=== PATIENT | female | born 1945 | race Caucasian/White ===

== ENCOUNTER → 2020-02-14 | Outpatient (CLI) | payer OTHER ==
[~2020-02-14] MED LIST: Aspir 8181 MG PO; LEVSOD100 PO; PRAV20 PO; TRIHYD253A PO
== END | disposition home or self-care (01) ==
LOC: LAB SHORT 11:39 → LAB EV 11:39
DX: N39.0 Urinary tract infection, site not specified (principal)
CPT/HCPCS: 87077; 87086; 87186

== ENCOUNTER 2023-04-26 09:20 | Inpatient (IN) | payer OTHER ==
[2023-04-26] VITALS (9 sets, daily range): BP systolic 82–110; BP diastolic 54–61
[~2023-04-26] VITALS: Ht 157.5 cm; Wt 54.9 kg
[~2023-04-26 09:20] MED LIST changes: +EUTHYROX50 MCG PO; -LEVSOD100 PO
[2023-04-26 10:43] LABS: International Normalized Ratio 1.16; Prothrombin Time Results 12.1 Sec (9.7-11.5)
[2023-04-26 11:15] LABS: Adenovirus Not Detected (NOT DETECT); Bordetella pertussis Not Detected (NOT DETECT); Chlamydophila pneumoniae Not Detected (NOT DETECT); Coronavirus 229E Not Detected (NOT DETECT); Coronavirus HKU1 Not Detected (NOT DETECT); Coronavirus NL63 Not Detected (NOT DETECT); Coronavirus OC43 Not Detected (NOT DETECT); Human Metapneumovirus Not Detected (NOT DETECT); Human Rhinovirus/Enterovirus Not Detected (NOT DETECT); Influenza A/2009-H1 Not Detected (NOT DETECT); Influenza A/H1 Not Detected (NOT DETECT); Influenza A/H3 Not Detected (NOT DETECT); Influenza B Not Detected (NOT DETECT); Mycoplasma pneumoniae Not Detected (NOT DETECT); Parainfluenza Virus 1 Not Detected (NOT DETECT); Parainfluenza Virus 2 Not Detected (NOT DETECT); Parainfluenza Virus 3 Not Detected (NOT DETECT); Parainfluenza Virus 4 Not Detected (NOT DETECT); Respiratory Syncytial Virus Not Detected (NOT DETECT); SARS-Cov-2 (COVID-19), BioFire Not Detected (NOT DETECT)
[2023-04-26 12:14] LABS: Albumin, Blood 2.2 g/dL (3.4-5.0); Albumin/Globulin Ratio 0.6 (0.8-1.8); Bilirubin, Total 0.7 mg/dL (0.1-1.0); Bun/Creatinine Ratio 16.4 (12.0-20.0); Calcium, Blood 8.5 mg/dL (8.5-10.1); Creatinine, Blood 1.1 mg/dL (0.40-1.00); Globulin, Blood 3.5 g/dL (2.2-4.0); Magnesium, Blood 2.2 mg/dL (1.6-2.4); Potassium, Blood 4.3 mmol/L (3.5-5.5); Total Protein, Blood 5.7 g/dL (6.4-8.2)
[2023-04-26 12:28] LABS: Hematocrit 25.1 % (33.0-51.0); Hemoglobin 8.5 g/dL (11.5-16.0); Mean Corpuscular HGB 29.9 pg (26.0-34.0); Mean Corpuscular HGB Conc 33.9 g/dL (31.5-36.5); Mean Corpuscular Volume 88 fL (80-100); RDW Coefficient Variation 15.2 % (11.7-14.2); RDW Standard Deviation 49.1 fL (35.1-46.3); Red Blood Cell Count 2.84 M/mm3 (3.80-5.20); White Blood Cell Count 5.32 K/mm3 (4.00-11.30)
[2023-04-26 12:30] LABS: Mean Platelet Volume 11.7 fL (9.1-12.4); Platelet Count 170 K/mm3 (150-400)
[2023-04-26 12:49] LABS: BAND PERCENT MAN 7 % (0-8); BASOPHILS PERCENT MAN 0 % (0-2); EOSINOPHILS ABSOLUTE MAN 0.05 K/mm3 (0.00-0.68); EOSINOPHILS PERCENT MAN 1 % (0-6); LYMPHOCYTES % ATYPICAL MANUAL 3 % (0-0); LYMPHOCYTES ABSOLUTE MAN 0.58 K/mm3 (0.84-5.20); LYMPHOCYTES PERCENT MAN 8 % (21-46); MONOCYTES PERCENT MAN 2 % (4-13); NEUTROPHILS ABSOLUTE MAN 4.57 K/mm3 (1.96-9.15); SEG NEUTROPHILS PERCENT MAN 79 % (41-73); TOTAL CELLS COUNTED 100
[2023-04-26 13:04] LABS: Source, Urine Clean Catch
[2023-04-26 13:17] LABS: Appearance, Urine Clear (Clear); Bilirubin, Urine Neg (Neg); Blood, Urine Neg (Neg); Color, Urine Yellow (P-Yellow); Glucose Qualitative, Urine Neg (Neg); Ketones, Urine Neg (Neg); Leukocyte Esterase, Urine Neg (Neg); Nitrite, Urine Neg (Neg); Protein, Urine Neg (Neg); Urobilinogen, Urine NORM (Normal)
[2023-04-26] MEDS ORDERED: OMEP20ER PO (15:18)
--- NOTE | 2023-04-26 15:51 | NUR ---
ADMIT: PATIENT ADMIT TO PCU 08. EDUCATED/ORIENTED TO UNIT AND UNIT PROTOCOLS INCLUDING FIRE SAFETY AND IGNITION RISK. PATIENT ABLE TO VERBALIZE AND TEACH BACK EDUCATION. ALERT AND ORIENTED X4. SOFT SPOKEN. OVERALL WEAK. 1 PERSON ASSIST. DENIES NUMBNESS/TINGLING. PERRLA, WEARING GLASSES. TELE SHOWING SR WITH HR 80-90'S. BP SOFT WITH NS INFUSING PER EMAR. DENIES CHEST PAIN/PRESSURE/PALPITATIONS. PPP. NO SIGNS OF BLEEDING. PATIENT STATES SHE RECENTLY WENT TO [place] FROM [facility] FOR GI BLEED AND STATES "THEY STOPPED BLEED BY DOING ANGIO". RIGHT GROIN RESIDUAL BRUISING FROM ANGIO. PATIENT DENIES ANY DARK BLACK OR BRIGHT RED STOOLS. STATES SHE HAS VERY SMALL BOWEL MOVEMENTS. CLEAR LIQUID DIET. DRINKING CHICKEN BROTH AT THIS TIME. BOWEL TONES PRESENT. DENIES ABDOMINAL PAIN/NAUSEA. ON ROOM AIR SATING ABOVE 95%. LUNGS SOUNDING CLEAR AND DIM IN BASES. EVEN AND UNLABORDED BREATHING. PATIENT STATES SHE OCCASIONALLY FEELS SOB. CONTINUOUS PULSE OX IN PLACE. TEJAS AT BEDSIDE AND UPDATED BY THIS RN. TO CALL THIS RN WHEN HOME AND VERIFY HOME MEDICATION DOSAGES. CALL LIGHT IN REACH. PATIENT EDUCATED ON FALL RISK AND VERBALIZES SHE WILL CALL FOR ASSISTANCE WHEN NEEDING TO GET UP TO BATHROOM.
--- NOTE | 2023-04-26 17:42 | NUR ---
SHIFT SUMMARY: NO ACUTE CHANGES. BP SLIGHTLY IMPROVED. PATIENT CONTINUES TO DENY PAIN. REMAINS ON ROOM AIR. TELE SR WITH HR 70-80'S. UP TO BSC WITH ONE PERSON ASSIST. NS INFUSING PER EMAR. EATING CLEAR LIQUID DINNER AT THIS TIME. NO SIGNS OF GI BLEED. SCD'S IN PLACE. ABLE TO VERIFY MEDS AND COMPLETE MED REC WITH . CALL LIGHT IN REACH.
--- NOTE | 2023-04-26 20:57 | NUR ---
ASSUMED PT CARE FROM RICHARD PADILLA ON . PT IS A&OX4. ABLE TO FOLLOW DIRECTIONS AND MAKE NEEDS KNOWN. DENIES ANY SOB OR CHEST PAIN THIS EVENING. O2 SATS > 92% ON RA. HR IS SR IN THE 80'S. BP IS SOFT, SEE RECORDED BP, MAP > 65. ASYMPTOMATIC. WILL MONITOR. DENIES NEEDS AT THIS TIME. CALL LIGHT IN REACH.
[2023-04-27] VITALS (15 sets, daily range): BP systolic 87–104; BP diastolic 53–74
[2023-04-27 05:49] LABS: BASOPHILS ABSOLUTE AUTO 0.06 K/mm3 (0.00-0.23); BASOPHILS PERCENT AUTO 1 % (0-2); EOSINOPHILS ABSOLUTE AUTO 0.03 K/mm3 (0.00-0.68); EOSINOPHILS PERCENT AUTO 1 % (0-6); Hematocrit 25.5 % (33.0-51.0); Hemoglobin 8.6 g/dL (11.5-16.0); IMMATURE GRAN ABSOLUTE AUTO 0.02 K/mm3 (0.00-0.10); IMMATURE GRAN PERCENT AUTO 0 % (0-1); LYMPHOCYTES ABSOLUTE AUTO 0.13 K/mm3 (0.84-5.20); LYMPHOCYTES PERCENT AUTO 3 % (21-46); MONOCYTES ABSOLUTE AUTO 0.73 K/mm3 (0.16-1.47); MONOCYTES PERCENT AUTO 16 % (4-13); Mean Corpuscular HGB 30.2 pg (26.0-34.0); Mean Corpuscular HGB Conc 33.7 g/dL (31.5-36.5); Mean Corpuscular Volume 90 fL (80-100); Mean Platelet Volume 11.6 fL (9.1-12.4); NEUTROPHILS ABSOLUTE AUTO 3.71 K/mm3 (1.96-9.15); NEUTROPHILS PERCENT AUTO 79 % (41-73); Platelet Count 184 K/mm3 (150-400); RDW Coefficient Variation 15.7 % (11.7-14.2); RDW Standard Deviation 50.6 fL (35.1-46.3); Red Blood Cell Count 2.85 M/mm3 (3.80-5.20); White Blood Cell Count 4.68 K/mm3 (4.00-11.30)
[2023-04-27 06:07] LABS: Albumin, Blood 1.7 g/dL (3.4-5.0); Albumin/Globulin Ratio 0.7 (0.8-1.8); Bilirubin, Total 0.5 mg/dL (0.1-1.0); Bun/Creatinine Ratio 13.8 (12.0-20.0); Calcium, Blood 7.2 mg/dL (8.5-10.1); Creatinine, Blood 1.09 mg/dL (0.40-1.00); Globulin, Blood 2.5 g/dL (2.2-4.0); Potassium, Blood 4.8 mmol/L (3.5-5.5); Total Protein, Blood 4.2 g/dL (6.4-8.2)
--- NOTE | 2023-04-27 07:08 | NUR ---
SHIFT SUMMARY: PT SLEEPING INTERMITTENTLY THROUGHOUT NIGHT. BPS REMAIN SOFT WITH MAP > 65. NO ACUTE CHANGES NOTE IN PT CONDITION DURING THIS SHIFT. CALL LIGHT IN REACH. BED IN LOW POSITION.
--- NOTE | 2023-04-27 08:53 | NUR ---
AM NOTE: PATIENT ALERT AND ORIENTED X4. OVERALL WEAK. PERRLA, WEARING GLASSES. DENIES NUMBNESS/TINGLING. UP WITH SBA. ON ROOM AIR SATING ABOVE 95%. AT TIMES FEELING SOB. OCCASIONAL NON PRODUCTIVE COUGH. EVEN AND UNLABORED BREATHING. EDUCATED ON FIRE RISK SAFETY AND IGNITION SOURCES. PATIENT DENIES HAVING ANY IGNITION SOURCES. TELE SHOWING SR WITH HR 80-90'S. DENIES CHEST PAIN/PRESSURE/PALPITATIONS. BP ON SOFTER SIDE. PO MIDODRINE GIVEN THIS AM. DR. WATKINS BY THIS AM. THIS RN WILL CONTINUE TO UPDATE DR. WATKINS ON BP LATER THIS AFTERNOON. PPP. MINIMAL EDEMA IN BLE. SCD'S IN PLACE. DENIES ABDOMINAL PAIN/NAUSEA. CLEAR LIQUID DIET AT THIS TIME. EATING AND VOIDING WNL. BOWEL TONES PRESENT. CALL LIGHT IN REACH. GRANDSON AT BEDSIDE.
--- NOTE | 2023-04-27 17:53 | NUR ---
SHIFT SUMMARY: NO ACUTE CHANGES, SEE PREVIOUS NOTES. PATIENT UP TO CHAIR FOR MEALS AND WALKING AROUND ROOM WITH THIS RN. REMAINS WEAK. DRY COUGH WHEN UP EXERCISING. ON ROOM AIR. SR/ST WITH HR 80-110'S. BP REMAINS SOFT, PO MIDODRINE ADMINISTERED PER EMAR. EATING AND VOIDING WELL. PHYSICAL THERAPY WORKING WITH PATIENT. UPDATED BY THIS RN AND DR. WATKINS. CALL LIGHT IN REACH.
--- NOTE | 2023-04-27 21:08 | NUR ---
ASSUMED PT CARE FROM RICHARD PADILLA ON . A&OX4. ABLE TO FOLLOW DIRECTIONS AND MAKE NEEDS KNOWN. PT DENIES ANY SOB OR CHEST PAIN/PRESSURES THIS EVENING. HR IS SR IN THE 80'S. O2 > 92% ON RA. DENIES ANY NAUSEA. WARM BLANKET PROVIDED FOR COMFORT. DENIES FURTHER NEEDS AT THIS TIME. CALL LIGHT IN REACH.
[2023-04-28 01:27] VITALS: BP 84/48
--- NOTE | 2023-04-28 02:14 | NUR ---
DR. DOMÍNGUEZ NOTIFIED PT BP LOW WITH MAP OF 60 THIS A.M. ADDITIONAL DOSE OF MIDODRINE GIVEN PER ORDERS.
[2023-04-28 03:37] VITALS: BP 91/52
[2023-04-28 04:44] LABS: Hemoglobin 8.5 g/dL (11.5-16.0); Mean Corpuscular HGB 30.2 pg (26.0-34.0); Mean Corpuscular Volume 89 fL (80-100); Mean Platelet Volume 11.4 fL (9.1-12.4); Platelet Count 181 K/mm3 (150-400); RDW Coefficient Variation 15.8 % (11.7-14.2); RDW Standard Deviation 51.4 fL (35.1-46.3); Red Blood Cell Count 2.81 M/mm3 (3.80-5.20); White Blood Cell Count 4.72 K/mm3 (4.00-11.30)
[2023-04-28 05:03] LABS: Bun/Creatinine Ratio 15.4 (12.0-20.0); Calcium, Blood 7.8 mg/dL (8.5-10.1); Creatinine, Blood 1.23 mg/dL (0.40-1.00); Potassium, Blood 4.5 mmol/L (3.5-5.5)
[2023-04-28 05:21] LABS: BAND PERCENT MAN 11 % (0-8); BASOPHILS ABSOLUTE MAN 0.09 K/mm3 (0.00-0.23); BASOPHILS PERCENT MAN 2 % (0-2); EOSINOPHILS ABSOLUTE MAN 0.04 K/mm3 (0.00-0.68); EOSINOPHILS PERCENT MAN 1 % (0-6); LYMPHOCYTES ABSOLUTE MAN 0.04 K/mm3 (0.84-5.20); LYMPHOCYTES PERCENT MAN 1 % (21-46); MONOCYTES ABSOLUTE MAN 0.51 K/mm3 (0.16-1.47); MONOCYTES PERCENT MAN 11 % (4-13); NEUTROPHILS ABSOLUTE MAN 4.01 K/mm3 (1.96-9.15); SEG NEUTROPHILS PERCENT MAN 74 % (41-73); TOTAL CELLS COUNTED 100
--- NOTE | 2023-04-28 07:32 | NUR ---
SHIFT SUMMARY: PT SLEEPING INTERMITTENTLY THROUGHOUT SHIFT. DENIES ANY COMPLAINTS OF CHEST PAIN/PRESSURE. VITAL SIGNS STABLE. CALL LIGHT IN REACH. RESTING IN BED WATCHING TV.
[2023-04-28 07:43] VITALS: BP 95/59
[2023-04-28 11:47] VITALS: BP 94/59
[2023-04-28 15:47] VITALS: BP 104/61
--- NOTE | 2023-04-28 17:10 | NUR ---
SHIFT SUMMARY: PT ALERT AND ORIENTED X4, ABLE TO FOLLOW COMMANDS AND MAKE NEEDS KNOWN. BP SOFT MAP >60, HR SR 90'S, AFEBRILE, SATS >98% ON ROOM AIR. MIDODRINE INCREASED THIS SHIFT, RESPONDING WELL. PT ONE PERSON ASSIST TO AND FROM BATHROOM. APPROX 800 ML OF URINARY OUT, NO BM. PT AMBULATED WITH THIS SHIFT AROUND UNIT. PATIENT EDUCATED ON RISK REGARDING IGNITION SOURCES AND RISK OF INJURY WHILE OXYGEN IS IN USE. PT DENIES SMOKING AND VERBALIZES UNDERSTANDING. BED IN LOW, CALL LIGHT IN REACH, WILL REPORT TO ONCOMING RN.
[2023-04-28 21:21] VITALS: BP 90/58
--- NOTE | 2023-04-28 21:26 | NUR ---
ASSUMED PT CARE FROM BENI PADILLA ON . A&OX4. DENIES ANY NAUSEA OR CHEST PAIN. HR SR IN THE 80'S. UP TO THE 110'S WHEN AMBUALTING. O2 > 92% ON RA. STATES SOB AT BASELINE BUT AT THIS TIME NOT INCREASED MORE THEN NORMAL. BP SOFT WITH MAP > 65 AT THIS TIME. DENIES LIGHTHEADEDNESS/DIZZIENESS. VOIDING CLEAR, YELLOW URINE WITHOUT DIFFICULTY. DENIES FURTHER NEEDS. CALL LIGHT IN REACH.
[2023-04-29 00:17] VITALS: BP 92/59
[2023-04-29 04:37] VITALS: BP 92/57
[2023-04-29 04:39] LABS: Hematocrit 23.6 % (33.0-51.0); Mean Corpuscular HGB 29.9 pg (26.0-34.0); Mean Corpuscular HGB Conc 33.9 g/dL (31.5-36.5); Mean Corpuscular Volume 88 fL (80-100); Mean Platelet Volume 11.6 fL (9.1-12.4); Platelet Count 170 K/mm3 (150-400); RDW Coefficient Variation 15.8 % (11.7-14.2); RDW Standard Deviation 50.8 fL (35.1-46.3); Red Blood Cell Count 2.68 M/mm3 (3.80-5.20)
[2023-04-29 04:58] LABS: Calcium, Blood 7.4 mg/dL (8.5-10.1); Creatinine, Blood 1.13 mg/dL (0.40-1.00); Potassium, Blood 4.3 mmol/L (3.5-5.5)
--- NOTE | 2023-04-29 05:26 | NUR ---
SHIFT SUMMARY: BP CONTINUES TO BE SOFT WITH MAP > 65. NO ACUTE CHANGES NOTED DURING THIS SHIFT. OTHER VITAL SIGNS STABLE. SLEPT MAJORITY OF SHIFT. CALL LIGHT IN REACH. BED IN LOW POSITION.
[2023-04-29 05:43] LABS: BASOPHILS ABSOLUTE MAN 0.12 K/mm3 (0.00-0.23); BASOPHILS PERCENT MAN 3 % (0-2); EOSINOPHILS ABSOLUTE MAN 0.08 K/mm3 (0.00-0.68); EOSINOPHILS PERCENT MAN 2 % (0-6); LYMPHOCYTES PERCENT MAN 5 % (21-46); MONOCYTES PERCENT MAN 5 % (4-13); SEG NEUTROPHILS PERCENT MAN 85 % (41-73); TOTAL CELLS COUNTED 100
[2023-04-29 07:37] VITALS: BP 96/56
[2023-04-29] MEDS ORDERED: PANT40 PO (11:11)
[2023-04-29] MEDS ORDERED: ACET325 PO (11:12)
[2023-04-29] MEDS ORDERED: BENZ100A PO (11:13)
[2023-04-29] MEDS ORDERED: VISBIOME 112.51 EACH PO (11:14)
[2023-04-29] MEDS ORDERED: MIDO5 PO (11:14)
[2023-04-29] MEDS ORDERED: AMOX CLAV PO (11:15)
--- NOTE | 2023-04-29 12:43 | NUR ---
DISCHARGE: PT HAS BEEN CLEARED FOR DISCHARGE. ALL IV ACCESS DC'd WNL. PT DRESSES SELF. PT PROVIDED W/DC INSTRUCTIONS AND PAPERWORK, V/U, ALL QUESTIONS ANSWERED. PT ASSISTED FROM UNIT VIA W/C.
== END 2023-04-29 12:17 | disposition home or self-care (01) | DRG 840 ==
LOC: ER 09:20 → PCU 13:22
PROVIDERS: Student in an Organized Health Care Education/Training Program; ADMIT Internal Medicine
DX: C85.10 Unspecified B-cell lymphoma, unspecified site (principal); J18.9 Pneumonia, unspecified organism; E87.1 Hypo-osmolality and hyponatremia; J90 Pleural effusion, not elsewhere classified; J98.11 Atelectasis; I95.9 Hypotension, unspecified; D63.0 Anemia in neoplastic disease; D63.8 Anemia in other chronic diseases classified elsewhere; E03.9 Hypothyroidism, unspecified; M81.0 Age-related osteoporosis without current pathological fracture; Z20.822 Contact with and (suspected) exposure to COVID-19; E87.8 Other disorders of electrolyte and fluid balance, not elsewhere classified; R79.89 Other specified abnormal findings of blood chemistry; K25.9 Gastric ulcer, unspecified as acute or chronic, without hemorrhage or perforation; R59.0 Localized enlarged lymph nodes; K86.89 Other specified diseases of pancreas; I10 Essential (primary) hypertension; E86.0 Dehydration; E27.8 Other specified disorders of adrenal gland; R53.81 Other malaise; Z79.899 Other long term (current) drug therapy; Z79.890 Hormone replacement therapy; Z98.890 Other specified postprocedural states
CPT/HCPCS: 0202U; 36415; 71046; 80048; 80053; 81003; 82330; 82728; 83540; 83550; 83735; 83880; 84145; 85025; 85610; 85730; 86850; 86900; 86901; 93005; 93010; 96361; 96365; 96375; 97110; 97162; 99285-25; A9270; J0456; J0696; J7030; J7050

== ENCOUNTER 2023-05-09 08:45 | Inpatient (IN) | payer OTHER ==
[~2023-05-09] VITALS: Ht 157.5 cm; Wt 55.3 kg
[2023-05-09] VITALS (14 sets, daily range): BP systolic 50–127; BP diastolic 22–100
[~2023-05-09 08:45] MED LIST changes: +ACET325 PO; +AMOX CLAV PO; +BENZ100A PO; +MIDO5 PO; +OMEP20ER PO; +PANT40 PO; +VISBIOME 112.51 EACH PO
[2023-05-09 09:10] LABS: Calcium, Ionized (POC) 1.09 mmol/L (1.10-1.46); Chloride (POC) 97 mmol/L (98-108); Creatinine (POC) 2.5 mg/dL (0.6-1.0); Glucose (ISTAT POC) 129 mg/dL (70-99); Hemoglobin (POC) 11.6 g/dL (12.0-16.0); Potassium (POC) 4.6 mmol/L (3.5-5.5); Sodium (POC) 126 mmol/L (135-148); Total CO2 (POC) 15 mmol/L (21-32)
[2023-05-09 09:20] LABS: Hematocrit 33.6 % (33.0-51.0); Mean Corpuscular HGB 30.8 pg (26.0-34.0); Mean Corpuscular HGB Conc 32.7 g/dL (31.5-36.5); Mean Corpuscular Volume 94 fL (80-100); Mean Platelet Volume 11.8 fL (9.1-12.4); Platelet Count 202 K/mm3 (150-400); RDW Coefficient Variation 17.7 % (11.7-14.2); RDW Standard Deviation 60.6 fL (35.1-46.3); Red Blood Cell Count 3.57 M/mm3 (3.80-5.20)
[2023-05-09 09:48] LABS: Magnesium, Blood 2.4 mg/dL (1.6-2.4)
[2023-05-09 09:51] LABS: Albumin, Blood 1.7 g/dL (3.4-5.0); Albumin/Globulin Ratio 0.7 (0.8-1.8); Bilirubin, Total 0.7 mg/dL (0.1-1.0); Bun/Creatinine Ratio 17.2 (12.0-20.0); Calcium, Blood 7.6 mg/dL (8.5-10.1); Creatinine, Blood 2.09 mg/dL (0.40-1.00); Globulin, Blood 2.5 g/dL (2.2-4.0); Potassium, Blood 4.7 mmol/L (3.5-5.5); Total Protein, Blood 4.2 g/dL (6.4-8.2)
[2023-05-09 10:23] LABS: International Normalized Ratio 1.41; Prothrombin Time Results 14.5 Sec (9.7-11.5)
[2023-05-09 10:28] LABS: BAND PERCENT MAN 24 % (0-8); BASOPHILS PERCENT MAN 0 % (0-2); EOSINOPHILS PERCENT MAN 0 % (0-6); LYMPHOCYTES ABSOLUTE MAN 0.03 K/mm3 (0.84-5.20); LYMPHOCYTES PERCENT MAN 4 % (21-46); METAMYELOCYTE ABSOLUTE MAN 0.07 K/mm3 (0.00-0.00); METAMYELOCYTE PERCENT MAN 8 % (0-0); MONOCYTES ABSOLUTE MAN 0.03 K/mm3 (0.16-1.47); MONOCYTES PERCENT MAN 4 % (4-13); NEUTROPHILS ABSOLUTE MAN 0.75 K/mm3 (1.96-9.15); SEG NEUTROPHILS PERCENT MAN 60 % (41-73); TOTAL CELLS COUNTED 25
[2023-05-09 12:00] LABS: Source, Urine Foley catheter
[2023-05-09 12:37] LABS: Appearance, Urine Clear (Clear); Bilirubin, Urine Neg (Neg); Blood, Urine 4+ (Neg); Color, Urine Yellow (P-Yellow); Glucose Qualitative, Urine Neg (Neg); Ketones, Urine Neg (Neg); Leukocyte Esterase, Urine Neg (Neg); Nitrite, Urine Neg (Neg); Protein, Urine 2+ (Neg); Urobilinogen, Urine NORM (Normal)
--- NOTE | 2023-05-09 13:05 | NUR ---
Assisted RANDY Gutierrez with pre-op in ER 3. Pt is on 15 mcg/min of Levophed. Lr 1 liter bolus initiated. randy Carpenter ER requested additional vasopressor, but no new orders at this time. Patient confirms NPO status and agrees with scheduled surgery. Lungs clear T/O to Auscultation. Surgical site prepped with 2% Chlorhexidine cloth wipe.Pt to go to ICU 7 post-op.
--- NOTE | 2023-05-09 13:16 | NUR ---
SBP 100'S AND MAP 57 AFTER 500 CC FLUID BOLUS.
[2023-05-09 13:24] LABS: Calcium Oxalate Crystals Few /hpf
[2023-05-09 13:25] LABS: Amorphous Light (0-Heavy); Bacteria Mod /hpf; Red Blood Cells, Urine 0-2 /hpf (0-2); White Blood Cells, Urine 0-2 /hpf (0-5)
[2023-05-09 13:26] LABS: Mucus Mod (0-Heavy); Squamous Epithelial Cells Rare /hpf (Few); Transitional Epithelial Cells Rare /hpf (0-Rare)
[2023-05-09 16:12] LABS: Base Excess Venous -14.8 mmol/L; Bicarbonate Venous 13.9 mmol/L (24.0-30.0); PCO2 Venous 34.3 mmHg (38-42)
[2023-05-09 16:17] LABS: Mean Corpuscular HGB 30.2 pg (26.0-34.0); Mean Corpuscular HGB Conc 34.3 g/dL (31.5-36.5); Mean Platelet Volume 11.2 fL (9.1-12.4); Platelet Count 185 K/mm3 (150-400); RDW Coefficient Variation 19.3 % (11.7-14.2); RDW Standard Deviation 61.1 fL (35.1-46.3); Red Blood Cell Count 3.97 M/mm3 (3.80-5.20)
[2023-05-09 16:20] LABS: Mean Corpuscular Volume 88 fL (80-100)
[2023-05-09 16:23] LABS: White Blood Cell Count 0.73 K/mm3 (4.00-11.30)
[2023-05-09 17:33] LABS: BAND PERCENT MAN 7 % (0-8); BASOPHILS PERCENT MAN 0 % (0-2); EOSINOPHILS PERCENT MAN 0 % (0-6); LYMPHOCYTES ABSOLUTE MAN 0.08 K/mm3 (0.84-5.20); LYMPHOCYTES PERCENT MAN 11 % (21-46); MONOCYTES ABSOLUTE MAN 0.08 K/mm3 (0.16-1.47); MONOCYTES PERCENT MAN 11 % (4-13); NEUTROPHILS ABSOLUTE MAN 0.56 K/mm3 (1.96-9.15); SEG NEUTROPHILS PERCENT MAN 70 % (41-73); TOTAL CELLS COUNTED 27
--- NOTE | 2023-05-09 17:41 | NUR ---
SUMMARY PT ARRIVES TO ICU 7 FROM OR FOR PERFORATED BOWEL. PT CAME IN THROUGH ER TODAY WITH ABD PAIN. PT IS INTUBATED AND ON LEVOPHED AT 15MCG/MIN ON ARRIVAL. HAD 1L IVF WO. STARTED VASOPRESSIN SOON AFTER ARRIVAL, SEE FLOWSHEET. UNRESPONSIVE AND PALE. H&H 12&35. NG TO LIS WITH DARK BROWN LIQUID. COLEMAN DRAINING YELLOW URINE. PT HAS CANDI TO MID ABD C/D/I, AND ELIAS DRAIN TO L ABD WITH CLEAR RED FLUID. PT IS BEING TRANSFERED TO [facility] REPORT CALLED TO DOV PADILLA. JEFFREY AT BEDSIDE WHILE DON HERE TO SEE PT. PT LOADED ON REACH HELICOPTER.
== END 2023-05-09 17:25 | disposition short-term general hospital (02) | DRG 329 ==
LOC: ER 08:45 → ICUE 13:41
PROVIDERS: Emergency Medicine; Internal Medicine Critical Care Medicine; ADMIT Surgery
PROC: 02H633Z Insertion of Infusion Device into Right Atrium, Percutaneous Approach (ICD-10-PCS; 2023-05-09)
PROC: B548ZZA Ultrasonography of Superior Vena Cava, Guidance (ICD-10-PCS; 2023-05-09)
PROC: 3E03329 Introduction of Other Anti-infective into Peripheral Vein, Percutaneous Approach (ICD-10-PCS; 2023-05-09)
PROC: 3E033XZ Introduction of Vasopressor into Peripheral Vein, Percutaneous Approach (ICD-10-PCS; 2023-05-09)
PROC: 0DH67UZ Insertion of Feeding Device into Stomach, Via Natural or Artificial Opening (ICD-10-PCS; 2023-05-09)
PROC: 30233N1 Transfusion of Nonautologous Red Blood Cells into Peripheral Vein, Percutaneous Approach (ICD-10-PCS; 2023-05-09)
PROC: 0T9B70Z Drainage of Bladder with Drainage Device, Via Natural or Artificial Opening (ICD-10-PCS; 2023-05-09)
PROC: 0DJD0ZZ Inspection of Lower Intestinal Tract, Open Approach (ICD-10-PCS; principal; 2023-05-09 12:30)
PROC: 0DB80ZZ Excision of Small Intestine, Open Approach (ICD-10-PCS; 2023-05-09 12:30)
DX: K63.1 Perforation of intestine (nontraumatic) (principal); A41.9 Sepsis, unspecified organism; R65.21 Severe sepsis with septic shock; K65.9 Peritonitis, unspecified; C83.30 Diffuse large B-cell lymphoma, unspecified site; N17.9 Acute kidney failure, unspecified; E87.1 Hypo-osmolality and hyponatremia; C79.89 Secondary malignant neoplasm of other specified sites; K66.8 Other specified disorders of peritoneum; J44.9 Chronic obstructive pulmonary disease, unspecified; E03.9 Hypothyroidism, unspecified; M81.0 Age-related osteoporosis without current pathological fracture; N18.30 Chronic kidney disease, stage 3 unspecified; D70.9 Neutropenia, unspecified; Z98.890 Other specified postprocedural states; Z87.19 Personal history of other diseases of the digestive system; Z79.899 Other long term (current) drug therapy
CPT/HCPCS: 36430; 51702; 71045; 74177; 80047; 80053; 81001; 82803; 83690; 83735; 84484; 85014; 85025; 85610; 85730; 86850; 86900; 86901; 86923; 87077; 87086; 87186; 88307; 93005; 93010; 94002; 96365-59; 96366-59; 96367-59; 96375-59; 99291-25; C1751; C9113; J0295; J1100; J1642; J1720; J2250; J2371; J2405; J2704; J3010; J7030; J7040; J7060; P9016; Q9967

== ENCOUNTER 2023-06-20 08:02 | Inpatient (IN) | payer OTHER ==
[~2023-06-20] VITALS: Ht 157.5 cm; Wt 45.5 kg
[2023-06-20 08:31] LABS: Hematocrit 32.4 % (33.0-51.0); Hemoglobin 10.4 g/dL (11.5-16.0); Mean Corpuscular HGB 31.1 pg (26.0-34.0); Mean Corpuscular HGB Conc 32.1 g/dL (31.5-36.5); Mean Corpuscular Volume 97 fL (80-100); Mean Platelet Volume 9.6 fL (9.1-12.4); Platelet Count 483 K/mm3 (150-400); RDW Coefficient Variation 20.5 % (11.7-14.2); RDW Standard Deviation 72.9 fL (35.1-46.3); Red Blood Cell Count 3.34 M/mm3 (3.80-5.20); White Blood Cell Count 6.89 K/mm3 (4.00-11.30)
[2023-06-20 08:41] LABS: Source, Urine Straight Cath
[2023-06-20] MEDS ORDERED: XARELTO20 MG PO (08:43)
[2023-06-20] MEDS ORDERED: ACYC800 PO ×2 (08:44→14:25)
[2023-06-20] MEDS ORDERED: SIME80CH PO (08:45)
[2023-06-20 08:51] LABS: Appearance, Urine Cloudy (Clear); Bilirubin, Urine Neg (Neg); Blood, Urine 3+ (Neg); Color, Urine Yellow (P-Yellow); Glucose Qualitative, Urine Neg (Neg); Ketones, Urine Neg (Neg); Leukocyte Esterase, Urine 3+ (Neg); Nitrite, Urine Pos (Neg); Protein, Urine 2+ (Neg); Specific Gravity, Urine 1.015 (1.003-1.022); Urobilinogen, Urine NORM (Normal)
[2023-06-20 08:51] LABS: Albumin, Blood 2.2 g/dL (3.4-5.0); Albumin/Globulin Ratio 0.6 (0.8-1.8); Bilirubin, Total 0.4 mg/dL (0.1-1.0); Bun/Creatinine Ratio 13.6 (12.0-20.0); Calcium, Blood 8.4 mg/dL (8.5-10.1); Creatinine, Blood 0.59 mg/dL (0.40-1.00); Globulin, Blood 3.8 g/dL (2.2-4.0); Potassium, Blood 3.4 mmol/L (3.5-5.5)
[2023-06-20 09:04] LABS: White Blood Cells, Urine TNTC /hpf (0-5)
[2023-06-20 09:05] LABS: Bacteria Many /hpf; Squamous Epithelial Cells Rare /hpf (Few)
[2023-06-20 10:29] LABS: BAND PERCENT MAN 3 % (0-8); BASOPHILS PERCENT MAN 0 % (0-2); EOSINOPHILS ABSOLUTE MAN 0.13 K/mm3 (0.00-0.68); EOSINOPHILS PERCENT MAN 2 % (0-6); LYMPHOCYTES ABSOLUTE MAN 0.41 K/mm3 (0.84-5.20); LYMPHOCYTES PERCENT MAN 6 % (21-46); MONOCYTES ABSOLUTE MAN 0.68 K/mm3 (0.16-1.47); MONOCYTES PERCENT MAN 10 % (4-13); NEUTROPHILS ABSOLUTE MAN 5.64 K/mm3 (1.96-9.15); SEG NEUTROPHILS PERCENT MAN 79 % (41-73); TOTAL CELLS COUNTED 100
[2023-06-20] MEDS ORDERED: MIDODRINE HCL10 M4 PO (12:14)
[2023-06-20] MEDS ORDERED: PRAV20 PO (12:15)
[2023-06-20 12:22] VITALS: BP 136/69
[2023-06-20] MEDS ORDERED: FLUC200 PO (14:24)
[2023-06-20] MEDS ORDERED: EUTHYROX50 MCG PO (14:24)
[2023-06-20] MEDS ORDERED: LIQUID PROTEIN PO (14:27)
[2023-06-20] MEDS ORDERED: PANT40 PO (14:28)
[2023-06-20] MEDS ORDERED: DOCUZEN 8.6-501 EACH PO (14:28)
[2023-06-20] MEDS ORDERED: Benadryl Itch28.3 G1 TOP (14:30)
[2023-06-20 16:10] VITALS: BP 151/50
--- NOTE | 2023-06-20 17:47 | NUR ---
PT ARRIVED FROM THE ED. PT WAS SOMMULENT UPON ARRIVAL. ORIENTED TO THE ROOM. PT SPOKE WITH AVA PADILLA ON THE PHONE. PT AWOKE AND AMBULATED TO THE RESTROOM, SHE APPEARED TO BE A BIT MORE ORIENTED BUT STILL FORGETFUL. DR. JOSHI AT BEDSIDE TO DO DRESSING CHANGE ON ABDOMINAL INSCISION. PICTURES IN THE CHART. AT BEDSIDE THIS EVENING. BED ALARM REGISTERED DIETETIC TECHNICIAN LIGHT IS WITHIN REACH.
--- NOTE | 2023-06-20 18:37 | NUR ---
PT STATUS: PT IS ALERT, BUT HAS TO BE REORIENTED TO SITUATION. SHE FORGETS THAT SHE IS IN THE HOSPITAL OR WHAT HAPPENED TO HAVE BROUGHT HER INTO THE HOSPITAL. PER DR. JOSHI OKAY TO ADVANCE THE PATIENT'S DIET TOLERATED ONCE SHE WAS MORE RESPONSIVE AND ALERT. NOW THAT SHE IS, TRIALED LIQUIDS AND JAYJAY CRACKERS GIVEN TO THE PATIENT WITHOUT SIGNS OF CHOKING, COUGHING, OR OTHER SIGNS OF ASPIRATION. AFTER SPEAKING WITH THE PATIENT ON HER DIET SHE STATED THAT SHE HAS CKD, BUT OTHER THAN THAT NO FOOD RESTRICTIONS. WILL PLACE AN ORDER FOR A RENAL DIET.
[2023-06-20 19:55] VITALS: BP 125/63
[2023-06-21 04:17] VITALS: BP 133/67
--- NOTE | 2023-06-21 04:42 | NUR ---
SHIFT SUMMARY 77 YR F ADMITTED ON 06/20/23 FOR UTI. DNR. NO ACUTE CHANGES THIS SHIFT. PT IS CONFUSED AND ASKED SEVERAL TIMES WHY SHE WAS IN THE HOSPITAL. SHE WAS TOLD THAT SHE HAD A UTI AND SHE STATED THAT SHE "THOUGHT SO". SHE IS PLEASANT AND COOPERATIVE AND CALLS APPROPRIATELY FOR ASSISTANCE. SHE AMBULATES TO THE BATHROOM W/ ASSISTANCE.
[2023-06-21 05:05] LABS: Hematocrit 27.6 % (33.0-51.0); Mean Corpuscular HGB 31.5 pg (26.0-34.0); Mean Corpuscular HGB Conc 32.6 g/dL (31.5-36.5); Mean Corpuscular Volume 97 fL (80-100); Mean Platelet Volume 9.8 fL (9.1-12.4); Platelet Count 445 K/mm3 (150-400); RDW Coefficient Variation 20.5 % (11.7-14.2); RDW Standard Deviation 72.1 fL (35.1-46.3); Red Blood Cell Count 2.86 M/mm3 (3.80-5.20); White Blood Cell Count 4.89 K/mm3 (4.00-11.30)
[2023-06-21 05:34] LABS: Bun/Creatinine Ratio 14.9 (12.0-20.0); Calcium, Blood 7.9 mg/dL (8.5-10.1); Creatinine, Blood 0.54 mg/dL (0.40-1.00)
[2023-06-21 07:15] VITALS: BP 141/74
[2023-06-21 10:57] LABS: Bun/Creatinine Ratio 13.7 (12.0-20.0); Creatinine, Blood 0.58 mg/dL (0.40-1.00); Potassium, Blood 3.2 mmol/L (3.5-5.5)
[2023-06-21 12:43] VITALS: BP 135/63
--- NOTE | 2023-06-21 13:21 | NUR ---
WOUND CARE SPOKE WITH SURGEON AT [facility] HE STATES SUTURES IN WOUND TO STAY IN PLACE, OKAY TO PLACE WOUND VAC. SPOKE WITH DR. JASON SCHULTZ ORDER FOR WOUND VAC RECIEVED. ABD WOUND CLEANSED WITH NS. ONE PIECE SALINE MOISTENED GAUZE TO WOUND BED COVERED BY ONE PIECE BLACK FOAM. WOUND VAC SET TO CONTINUOUS 120 MMHG. PT TOLERATED WELL. NEW PHOTO AND ASSESSMENT IN HARD CHART.
[2023-06-21 16:09] VITALS: BP 145/67
[2023-06-21 17:28] VITALS: BP 147/76
--- NOTE | 2023-06-21 17:28 | NUR ---
SPOKE WITH : A NEW ORDER WAS PLACED FOR A DUE NOW DOSE AT 1800 FOR KLOR-CON 60 MEQ ORALLY FOR THE PATIENT, BUT A REPEAT POTASSIUM LEVEL HASN'T BEEN RECHECKED SINCE 1000 TODAY SINCE SHE HAS RECEIVED AN ORAL DOSE OF 40 MEQ OF POTASSIUM AND RECEIVING AN ADDITIONAL IV INFUSION OF [address] NOVOA ADVISED TO D/C ORDER NOT TO GIVE AND TO HAVE THE PATIENT'S POTASSIUM RECHECKED IN THE MORNING.
--- NOTE | 2023-06-21 17:57 | NUR ---
SHIFT SUMMARY: PT IS A 77 YEAR OLD FEMALE WHO IS ALERT AND ORIENTED TO PERSON, PLACE, AND SITUATION. HER ORIENTATION HAS IMPROVED SINCE YESTERDAY 06/20/23. SHE STATES THAT SHE DOES NOT RECALL WHAT HAPPENED YESTERDAY. SHE GOT A WOUND VAC PLACED TODAY ON HER ABDOMINAL WOUND BY THE WOUND CARE NURSE, WHICH THE PATIENT STATED THAT SHE PREVIOUSLY HAD PRIOR TO BEING DISCHARGED FROM [facility]. SHE WAS STARTED ON IV ANTIBIOTICS AND CONTINUES TO GET IV POSTASSIUM FOR HYPOKALEMIA. REPEAT LEVEL DUE TO BE CHECKED IN THE MORNING. SHE IS PLEASANT, COOPERATIVE, AND IS A 1 STAND BY ASSIST TO THE RESTROOM DEEMED BY PT/OT TODAY. USE OF WALKER RECOMMENED TO MAINTAIN BALANCE. SHE FATIGUES QUICKLY, SO PLENTY OF REST. HAS CONTINOUS BI OX, ON ROOMAIR, CALL LIGHT WITHIN REACH, NO SIGNS OF SYMPTOMS OF DISTRESS.
[2023-06-21 19:26] VITALS: BP 152/79
[2023-06-22 03:58] VITALS: BP 142/80
--- NOTE | 2023-06-22 04:52 | NUR ---
SHIFT SUMMARY PT IS A&O X4, PLEASANT AND COOPERATIVE WITH CARE. PT CONTINENT AND ABLE TO AMBULATE TO THE RESTROOM WITH 1 PERSON ASSIST AND WALKER. PT SLEPT THROUGH MOST OF THE NIGHT. CONTINUOUS PULSE OX IN USE AND SATS KEPT ABOVE 95% T/O SHIFT. ABDOMINAL INCISION WITH WOUND VAC IN PLACE DRAINING VERY SMALL AMOUNT NS KCL 20 mEq. CURRENTLY INFUSING AT 75 ML/HR. POTASSIUM LABS TO BE DRAWN THIS MORNING. PT DENIES ANY PAIN OR DISCOMFORT. BED KEPT IN LOWEST POSITION, CALL LIGHT WITHIN REACH. PT CALLS APPROPRIATELY TO MAKE NEEDS KNOWN.
[2023-06-22 04:57] LABS: Hematocrit 29.4 % (33.0-51.0); Hemoglobin 9.3 g/dL (11.5-16.0); Mean Corpuscular HGB 31.2 pg (26.0-34.0); Mean Corpuscular HGB Conc 31.6 g/dL (31.5-36.5); Mean Corpuscular Volume 99 fL (80-100); Mean Platelet Volume 9.4 fL (9.1-12.4); Platelet Count 408 K/mm3 (150-400); RDW Coefficient Variation 20.4 % (11.7-14.2); RDW Standard Deviation 73.7 fL (35.1-46.3); Red Blood Cell Count 2.98 M/mm3 (3.80-5.20); White Blood Cell Count 4.93 K/mm3 (4.00-11.30)
[2023-06-22 05:15] LABS: Bun/Creatinine Ratio 19.6 (12.0-20.0); Calcium, Blood 7.7 mg/dL (8.5-10.1); Creatinine, Blood 0.61 mg/dL (0.40-1.00); Potassium, Blood 4.1 mmol/L (3.5-5.5)
[2023-06-22 05:24] LABS: BASOPHILS ABSOLUTE MAN 0.04 K/mm3 (0.00-0.23); BASOPHILS PERCENT MAN 1 % (0-2); EOSINOPHILS ABSOLUTE MAN 0.29 K/mm3 (0.00-0.68); EOSINOPHILS PERCENT MAN 6 % (0-6); LYMPHOCYTES ABSOLUTE MAN 0.24 K/mm3 (0.84-5.20); LYMPHOCYTES PERCENT MAN 5 % (21-46); MONOCYTES ABSOLUTE MAN 0.69 K/mm3 (0.16-1.47); MONOCYTES PERCENT MAN 14 % (4-13); NEUTROPHILS ABSOLUTE MAN 3.64 K/mm3 (1.96-9.15); SEG NEUTROPHILS PERCENT MAN 74 % (41-73); TOTAL CELLS COUNTED 100
[2023-06-22 07:17] VITALS: BP 144/75
[2023-06-22 10:44] LABS: Influenza A, PCR NEGATIVE (NEGATIVE); Influenza B, PCR NEGATIVE (NEGATIVE); Resp Syncytial Virus, PCR NEGATIVE (NEGATIVE); SARS-Cov-2 (COVID-19) PCR, MMC NEGATIVE (NEGATIVE)
[2023-06-22] MEDS ORDERED: CEFD300 PO (12:08)
[2023-06-22] MEDS ORDERED: LACT PO (12:08)
--- NOTE | 2023-06-22 14:16 | NUR ---
DISCHARGE NOTE PT DISCHARGED AT APPROX 1330, A&OX4, VSS, NO REPORT OF PAIN, VOIDING, AND TOLERATING PO. BELONGINGS WERE RETURNED AND WAS EXCOURTED OUT BY [facility] VIA W/C.
== END 2023-06-22 13:31 | DRG 71 ==
LOC: ER 08:02 → MEDS 10:42
PROVIDERS: Emergency Medicine; Family Medicine; Student in an Organized Health Care Education/Training Program; ADMIT Internal Medicine
DX: G93.41 Metabolic encephalopathy (principal); C79.71 Secondary malignant neoplasm of right adrenal gland; N39.0 Urinary tract infection, site not specified; C85.10 Unspecified B-cell lymphoma, unspecified site; C79.72 Secondary malignant neoplasm of left adrenal gland; D62 Acute posthemorrhagic anemia; Z66 Do not resuscitate; D63.0 Anemia in neoplastic disease; E87.6 Hypokalemia; E03.9 Hypothyroidism, unspecified; M81.0 Age-related osteoporosis without current pathological fracture; R45.1 Restlessness and agitation; Z79.01 Long term (current) use of anticoagulants; Z79.899 Other long term (current) drug therapy; Z87.19 Personal history of other diseases of the digestive system; Z98.890 Other specified postprocedural states; R41.3 Other amnesia; R59.0 Localized enlarged lymph nodes; N18.30 Chronic kidney disease, stage 3 unspecified; Z79.890 Hormone replacement therapy; Z86.711 Personal history of pulmonary embolism; Z20.822 Contact with and (suspected) exposure to COVID-19; Z86.718 Personal history of other venous thrombosis and embolism
CPT/HCPCS: 0241U; 36415; 70450; 71045; 80048; 80053; 81001; 83735; 85025; 85027; 87077; 87086; 87186; 93005; 93010; 94762; 96365-59; 97116; 97162; 97165; 97530; 99285-25; A9270; J0696; J2060; J3475; J3480

== ENCOUNTER 2023-07-01 01:03 | Day surgery (SDC) | payer OTHER ==
[~2023-07-01 01:03] MED LIST changes: +ACYC800 PO; +Benadryl Itch28.3 G1 TOP; +CEFD300 PO; +DOCUZEN 8.6-501 EACH PO; +FLUC200 PO; +LACT PO; +LIQUID PROTEIN PO; +MIDODRINE HCL10 M4 PO; +SIME80CH PO; +XARELTO20 MG PO
== END 2023-07-01 22:51 | disposition home or self-care (01) ==
LOC: WOUND 01:03
DX: T81.32XD Disruption of internal operation (surgical) wound, not elsewhere classified, subsequent encounter (principal); S31.109D Unspecified open wound of abdominal wall, unspecified quadrant without penetration into peritoneal cavity, subsequent encounter; K63.1 Perforation of intestine (nontraumatic)

== ENCOUNTER 2023-07-08 01:48 | Day surgery (SDC) | payer OTHER | END 2023-07-08 23:09 | disposition home or self-care (01) | LOC: WOUND 01:48 | DX: T81.32XA Disruption of internal operation (surgical) wound, not elsewhere classified, initial encounter (principal); K63.1 Perforation of intestine (nontraumatic); Y83.8 Other surgical procedures as the cause of abnormal reaction of the patient, or of later complication, without mention of misadventure at the time of the procedure ==

== ENCOUNTER 2023-07-29 00:57 | Day surgery (SDC) | payer OTHER | END 2023-07-29 23:14 | disposition home or self-care (01) | LOC: WOUND 00:57 | DX: T81.32XD Disruption of internal operation (surgical) wound, not elsewhere classified, subsequent encounter (principal); S31.109D Unspecified open wound of abdominal wall, unspecified quadrant without penetration into peritoneal cavity, subsequent encounter; K63.1 Perforation of intestine (nontraumatic); J44.9 Chronic obstructive pulmonary disease, unspecified; Y83.8 Other surgical procedures as the cause of abnormal reaction of the patient, or of later complication, without mention of misadventure at the time of the procedure | CPT/HCPCS: G0463 ==

== ENCOUNTER 2023-08-05 00:28 | Day surgery (SDC) | payer OTHER | END 2023-08-05 22:55 | disposition home or self-care (01) | LOC: WOUND 00:28 | DX: T81.32XD Disruption of internal operation (surgical) wound, not elsewhere classified, subsequent encounter (principal); K63.1 Perforation of intestine (nontraumatic); J44.9 Chronic obstructive pulmonary disease, unspecified; S31.109D Unspecified open wound of abdominal wall, unspecified quadrant without penetration into peritoneal cavity, subsequent encounter; Y83.8 Other surgical procedures as the cause of abnormal reaction of the patient, or of later complication, without mention of misadventure at the time of the procedure | CPT/HCPCS: A9270; G0463 ==

== ENCOUNTER 2023-08-12 01:08 | Day surgery (SDC) | payer OTHER | END 2023-08-13 22:50 | disposition home or self-care (01) | LOC: WOUND 01:08 | DX: S31.109D Unspecified open wound of abdominal wall, unspecified quadrant without penetration into peritoneal cavity, subsequent encounter (principal); X58.XXXD Exposure to other specified factors, subsequent encounter; T81.32XD Disruption of internal operation (surgical) wound, not elsewhere classified, subsequent encounter; Y83.8 Other surgical procedures as the cause of abnormal reaction of the patient, or of later complication, without mention of misadventure at the time of the procedure; J44.9 Chronic obstructive pulmonary disease, unspecified; Z86.711 Personal history of pulmonary embolism; Z79.01 Long term (current) use of anticoagulants | CPT/HCPCS: G0463 ==

== ENCOUNTER 2023-08-19 02:15 | Day surgery (SDC) | payer OTHER | END 2023-08-19 22:53 | disposition home or self-care (01) | LOC: WOUND 02:15 | DX: T81.32XD Disruption of internal operation (surgical) wound, not elsewhere classified, subsequent encounter (principal); S31.109D Unspecified open wound of abdominal wall, unspecified quadrant without penetration into peritoneal cavity, subsequent encounter; J44.9 Chronic obstructive pulmonary disease, unspecified; Y83.8 Other surgical procedures as the cause of abnormal reaction of the patient, or of later complication, without mention of misadventure at the time of the procedure | CPT/HCPCS: G0463 ==

== ENCOUNTER 2023-08-26 02:31 | Day surgery (SDC) | payer OTHER | END 2023-08-26 22:44 | disposition home or self-care (01) | LOC: WOUND 02:31 | DX: T81.32XD Disruption of internal operation (surgical) wound, not elsewhere classified, subsequent encounter (principal); S31.109D Unspecified open wound of abdominal wall, unspecified quadrant without penetration into peritoneal cavity, subsequent encounter; K63.1 Perforation of intestine (nontraumatic) | CPT/HCPCS: A9270 ==

== ENCOUNTER 2023-08-28 06:12 | Day surgery (SDC) | payer OTHER ==
[~2023-08-28] VITALS: Ht 157.5 cm; Wt 50.0 kg
[2023-08-28] VITALS (9 sets, daily range): BP systolic 131–143; BP diastolic 69–83
--- NOTE | 2023-08-28 10:26 | NUR ---
Discharge instructions reviewed with patient. Patient verbalizes understanding. Copy given to patient to take home. Patient States Post-Procedure ride home has been arranged. Discharged via wheelchair to private car for ride home.
== END 2023-08-28 10:30 | disposition home or self-care (01) ==
LOC: ORSCMMR 06:12 → ORD 07:30 → ORSCMMR 10:30
PROVIDERS: Surgery
PROC: 05HM33Z Insertion of Infusion Device into Right Internal Jugular Vein, Percutaneous Approach (ICD-10-PCS; principal; 2023-08-28 07:30)
PROC: B5131ZA Fluoroscopy of Right Jugular Veins using Low Osmolar Contrast, Guidance (ICD-10-PCS; principal; 2023-08-28 07:30)
PROC: 0JH63WZ Insertion of Totally Implantable Vascular Access Device into Chest Subcutaneous Tissue and Fascia, Percutaneous Approach (ICD-10-PCS; principal; 2023-08-28 07:30)
DX: C83.38 Diffuse large B-cell lymphoma, lymph nodes of multiple sites (principal); E03.9 Hypothyroidism, unspecified; K21.9 Gastro-esophageal reflux disease without esophagitis; N18.9 Chronic kidney disease, unspecified; E78.5 Hyperlipidemia, unspecified; Z79.01 Long term (current) use of anticoagulants; Z79.899 Other long term (current) drug therapy
CPT/HCPCS: 77001; C1788; J0690; J1100; J1642; J2001; J2250; J2371; J2405; J2704; J3010; J7120

== ENCOUNTER 2023-09-02 00:44 | Day surgery (SDC) | payer OTHER | END 2023-09-02 22:53 | disposition home or self-care (01) | LOC: WOUND 00:44 | DX: S31.109D Unspecified open wound of abdominal wall, unspecified quadrant without penetration into peritoneal cavity, subsequent encounter (principal); X58.XXXD Exposure to other specified factors, subsequent encounter; T81.32XD Disruption of internal operation (surgical) wound, not elsewhere classified, subsequent encounter; J44.9 Chronic obstructive pulmonary disease, unspecified; Z86.711 Personal history of pulmonary embolism; Z79.01 Long term (current) use of anticoagulants | CPT/HCPCS: G0463 ==

== ENCOUNTER 2023-09-16 03:01 | Day surgery (SDC) | payer OTHER | END 2023-09-16 23:06 | disposition home or self-care (01) | LOC: WOUND 03:01 | DX: T81.32XD Disruption of internal operation (surgical) wound, not elsewhere classified, subsequent encounter (principal); K63.1 Perforation of intestine (nontraumatic); S31.109D Unspecified open wound of abdominal wall, unspecified quadrant without penetration into peritoneal cavity, subsequent encounter | CPT/HCPCS: A9270; G0463 ==

== ENCOUNTER 2023-09-23 04:18 | Day surgery (SDC) | payer OTHER | END 2023-09-23 22:53 | disposition home or self-care (01) | LOC: WOUND 04:18 | DX: T81.32XD Disruption of internal operation (surgical) wound, not elsewhere classified, subsequent encounter (principal); J44.9 Chronic obstructive pulmonary disease, unspecified; K63.1 Perforation of intestine (nontraumatic); Y83.8 Other surgical procedures as the cause of abnormal reaction of the patient, or of later complication, without mention of misadventure at the time of the procedure | CPT/HCPCS: G0463 ==

== ENCOUNTER → 2023-11-06 | Outpatient (CLI) | payer OTHER ==
[2023-11-06 09:05] LABS: BASOPHILS ABSOLUTE AUTO 0.08 K/mm3 (0.00-0.23); BASOPHILS PERCENT AUTO 2 % (0-2); EOSINOPHILS ABSOLUTE AUTO 0.07 K/mm3 (0.00-0.68); EOSINOPHILS PERCENT AUTO 1 % (0-6); Hematocrit 34.5 % (33.0-51.0); Hemoglobin 11.7 g/dL (11.5-16.0); IMMATURE GRAN ABSOLUTE AUTO 0.04 K/mm3 (0.00-0.10); IMMATURE GRAN PERCENT AUTO 1 % (0-1); LYMPHOCYTES ABSOLUTE AUTO 0.35 K/mm3 (0.84-5.20); LYMPHOCYTES PERCENT AUTO 6 % (21-46); MONOCYTES ABSOLUTE AUTO 1.07 K/mm3 (0.16-1.47); MONOCYTES PERCENT AUTO 20 % (4-13); Mean Corpuscular HGB Conc 33.9 g/dL (31.5-36.5); Mean Corpuscular Volume 92 fL (80-100); NEUTROPHILS ABSOLUTE AUTO 3.86 K/mm3 (1.96-9.15); NEUTROPHILS PERCENT AUTO 71 % (41-73); Platelet Count 431 K/mm3 (150-400); RDW Standard Deviation 60.4 fL (35.1-46.3); Red Blood Cell Count 3.77 M/mm3 (3.80-5.20); White Blood Cell Count 5.47 K/mm3 (4.00-11.30)
== END | disposition home or self-care (01) ==
LOC: LAB 08:45 → LAB SHORT 08:45
PROVIDERS: Registered Nurse Oncology
DX: C83.30 Diffuse large B-cell lymphoma, unspecified site (principal); D70.1 Agranulocytosis secondary to cancer chemotherapy; T45.1X5A Adverse effect of antineoplastic and immunosuppressive drugs, initial encounter
CPT/HCPCS: 85025